=== PATIENT | female | born 1950 | race Caucasian/White ===

== ENCOUNTER 2019-05-17 10:45 | Emergency (ER) | payer OTHER ==
[~2019-05-17] VITALS: Ht 172.7 cm; Wt 89.9 kg
[~2019-05-17 10:45] MED LIST: ATOR20TA37 PO; LISI40TA PO
[2019-05-17 10:53] VITALS: BP 138/66
--- NOTE | 2019-05-17 11:05 | NUR ---
PT HERE WITH LEFT ANKLE PAIN, STATES SHE FELL AND ROLLED LEFT ANKLE YESTERDAY. DENIES TAKING TYLENOL/IBUPROFEN AT HOME.
--- NOTE | 2019-05-17 11:21 | NUR ---
PT TO XRAY.
--- NOTE | 2019-05-17 11:39 | NUR ---
PT BACK FROM XRAY.
--- NOTE | 2019-05-17 12:13 | NUR ---
Patient/Caregiver given discharge instructions and they have confirmed that they understand the instructions. Patient ambulatory with steady gait.
== END 2019-05-17 12:37 | disposition home or self-care (01) ==
LOC: ED 11:30
DX: S93.492A Sprain of other ligament of left ankle, initial encounter (principal); I10 Essential (primary) hypertension; Z87.891 Personal history of nicotine dependence; X50.0XXA Overexertion from strenuous movement or load, initial encounter; Y93.89 Activity, other specified; Y92.009 Unspecified place in unspecified non-institutional (private) residence as the place of occurrence of the external cause; Y99.8 Other external cause status
CPT/HCPCS: 99284